=== PATIENT | male | born 2000 | race Caucasian/White ===

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

== ENCOUNTER 2019-07-28 14:35 | Emergency (ER) | payer OTHER ==
[~2019-07-28] VITALS: Ht 180.3 cm; Wt 113.4 kg
[2019-07-28 14:35] VITALS: BP_SYST 124
--- NOTE | 2019-07-28 14:35 | NUR ---
BROUGHT IN BY [facility], PLACED IN BED #5 AND TRIAGED. REPORT GIVEN TO RONIT
--- NOTE | 2019-07-28 14:38 | NUR ---
Patient to ER bed 05 to gown for evaluation. Side rails up.
--- NOTE | 2019-07-28 14:40 | NUR ---
Patient presented to ER C/O back pain. Patient BIB BLS, A&Ox4, afebrile, skin pink & warm, pain 08/17, denies N/V/D. Patient states he had sudden sharp back pain while he was wrestling with nephew, called 911.
[2019-07-28] MEDS ORDERED: DIAZEPAM 5 MG TABLET (VALIUM) PO ONE (14:45)
[2019-07-28] MEDS ORDERED: KETOROLAC TROMETHAMINE 60 MG/2 ML VIAL IM ONE (14:45)
--- NOTE | 2019-07-28 15:46 | NUR ---
Patient taken to X-ray as ordered by Dr. Rainey, in stable condition.
--- NOTE | 2019-07-28 16:05 | NUR ---
Patient is back from X-ray, in stable condition.
[2019-07-28] MEDS ORDERED: fentaNYL CITRATE/PF 100 MCG/2 ML AMP IM ONE (16:45)
[2019-07-28] MEDS ORDERED: ONDANSETRON HCL 4 MG/2 ML VIAL IVP ONE (17:45)
[2019-07-28] MEDS ORDERED: MORPHINE SULFATE 10 MG/ML VIAL IVP ONE (17:45)
--- NOTE | 2019-07-28 17:45 | NUR ---
PATIENT DECLINED MORPHINE & ZOFRAN, MADE DR. CHAVEZ AWARE.
--- NOTE | 2019-07-28 17:55 | NUR ---
PATIENT ATTEMPTED TO SIT UP WITH ASSISTANCE FOE DISCHARGE, PATIENT DECIDED TO WAIT IN SUPINE POSITION. MADE DR. CHAVEZ AWARE.
--- NOTE | 2019-07-28 18:45 | NUR ---
PT ASSISTED TO WHEELCHAIR FOR DISCHARGE.
[2019-07-28 18:50] VITALS: BP_SYST 129
--- NOTE | 2019-07-28 18:50 | NUR ---
Patient given written and verbal discharge instructions and verbalizes understanding. ER MD discussed with patient the results and treatment provided. Patient in stable condition. ID arm band removed. Rx of []NORCO, NAPROXEN & SOMA given. Patient educated on pain management and to follow up with PMD. Pain Scale 5/10 TOLERABLE FOR PT[]. Opportunity for questions provided and answered. Medication side effect fact sheet provided.
== END 2019-07-28 18:50 | disposition home or self-care (01) ==
LOC: SED 14:35
DX: M54.5 Low back pain (principal); X58.XXXA Exposure to other specified factors, initial encounter; Y93.72 Activity, wrestling; Y92.89 Other specified places as the place of occurrence of the external cause; Y99.8 Other external cause status
CPT/HCPCS: 72100-TC; 96372; 99284

== ENCOUNTER 2021-01-16 22:37 | Emergency (ER) | payer OTHER, SELFPAY ==
[~2021-01-16] VITALS: Ht 182.9 cm; Wt 104.3 kg
[2021-01-16 22:59] VITALS: BP_SYST 126
--- NOTE | 2021-01-17 00:32 | NUR ---
Patient to [facility] RICHARDSON for evaluation.
--- NOTE | 2021-01-17 00:57 | NUR ---
BENITA Hughes at bedside examining patient.
[2021-01-17] MEDS ORDERED: IBUPROFEN 600 MG TABLET PO ONE (01:00)
[2021-01-17] MEDS ORDERED: DIAZEPAM 5 MG TABLET (VALIUM) PO ONE (01:00)
--- NOTE | 2021-01-17 01:23 | NUR ---
MEDICATED PER MD ORDER.
[2021-01-17 01:38] VITALS: BP_SYST 118
--- NOTE | 2021-01-17 01:38 | NUR ---
Patient given written and verbal discharge instructions and verbalizes understanding. ER MD discussed with patient the results and treatment provided. Patient in stable condition. ID arm band removed. NO RX given. Patient educated on pain management and to follow up with PMD. Pain Scale 0//10 Opportunity for questions provided and answered.
== END 2021-01-17 01:38 | disposition home or self-care (01) ==
LOC: SED 22:37
DX: B34.9 Viral infection, unspecified (principal); G89.29 Other chronic pain; M54.50 Low back pain, unspecified; Z20.822 Contact with and (suspected) exposure to COVID-19
CPT/HCPCS: 87426; 99283; C9803; U0003; 36415